=== PATIENT | female | born 1950 ===

== ENCOUNTER 2018-05-16 07:00 | Day surgery (SDC) | payer OTHER ==
[~2018-05-16] VITALS: Ht 152.4 cm; Wt 77.1 kg
[~2018-05-16 07:00] MED LIST: ASA81 MG PO; LOTREL 5-10 MG1 CAP PO; OMEPRAZOLE20 M1 PO; THEOPHYLLINE400 MG PO
[2018-05-17] MEDS ORDERED: DOCUSATE SODIU100 MG PO (07:02)
[2018-05-17] MEDS ORDERED: ULTRAM50 MG PO (07:03)
== END 2018-05-17 08:00 | disposition home or self-care (01) ==
LOC: CIR.AMB 07:00 → EDSTATUS 09:00 → SURH 09:00 → O/R 16:07 → SURH 16:30 → CIR.AMB 05-17 08:00 → O/R 05-17 11:22 → SURH 05-17 11:22
DX: N85.01 Benign endometrial hyperplasia (principal)